=== PATIENT | male | born 1985 | race Caucasian/White ===

== ENCOUNTER 2017-09-07 07:55 | Emergency (ER) | payer MEDICAID ==
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
[2017-09-07] MEDS ORDERED: OXYCODONE/APAP 5/325 TAB PO ONE (08:06)
[2017-09-07 10:07] VITALS: BP 125/77; PULSE 74; RESP 18; TEMP 97.5; O2SAT 97
== END 2017-09-07 10:10 | disposition home or self-care (01) ==
DX: K02.9 Dental caries, unspecified (principal); F17.200 Nicotine dependence, unspecified, uncomplicated